=== PATIENT | female | born 2000 | race Caucasian/White ===

== ENCOUNTER 2022-10-24 14:02 | Emergency (ER) | payer OTHER, SELFPAY ==
[2022-10-24 14:19] VITALS: BP 143/118; PULSE 85; RESP 16; TEMP 36.8; O2SAT 98; BMI 26.7
--- NOTE | 2022-10-24 14:19 | ED_ITS ---
HPI - Allergic Reaction General Chief complaint: General Medical <BILL Cook Last Filed: 10/24/22 14:26> Stated complaint: Allergic reaction? Unable to swallow <BILL Cook Last Filed: 10/24/22 14:26> Time Seen by Provider: 10/24/22 14:56 <BILL Cook Last Filed: 10/24/22 14:26> Source: patient <BILL Clay Last Filed: 10/24/22 15:05> Mode of arrival: ambulatory <BILL Clay Last Filed: 10/24/22 15:05> Limitations: no limitations <BILL Clay Last Filed: 10/24/22 15:05> History of Present Illness HPI narrative: Patient is a 22 year old assigned female at with no reported medical history presenting to the emergency department today after a reaction while donating plasma. Patient states that while she was donating she began to feel hot and like her throat was closing. Patient states that this was her 5th donation. Patient denies any current dizziness, lightheadedness, abdominal pain, nausea, vomiting, fever, chills, blurry vision, double vision, loss of vision, chest pain, difficulty breathing, shortness of breath, back pain, night sweats, pain with urination, increased urinary frequency, increased urinary urgency, blood in her urine or stool, syncope or a near syncopal episode, recent trauma or falls, bowel incontinence, bladder incontinence, bowel retention, bladder retention, or any other complaints at this time. <BILL Clay Last Filed: 10/24/22 15:05> Related Data Allergies/adverse reactions: Allergies Allergy/AdvReac Type Severity Reaction Status Date / Time Cephalosporins Allergy Unknown UNKNOWN Unverified 03/04/20 18:27 [CEPHALOSPORINS] <BILL Cook Last Filed: 10/24/22 14:26> Review of Systems Constitutional: Constitutional: Reports no additional constitutional complaints, Denies chills, Denies fever(s) and Denies night sweats <BILL Clay Last Filed: 10/24/22 15:05> Eyes: Eyes: Reports no additional eye complaints, Denies blurry vision, Denies change in vision, Denies diplopia, Denies eye discharge, Denies loss of vision and Denies eye pain <BILL Clay - Last Filed: 10/24/22 15:05> ENT: Denies dizziness <BILL Clay Last Filed: 10/24/22 15:05> Cardiovascular: Cardiovascular: Reports no additional cardiovascular complaints, Denies chest pain, Denies lightheadedness, Denies Loss of Consciousness and Denies dyspnea <BILL Clay - Last Filed: 10/24/22 15:05> Respiratory: Respiratory: Reports no additional respiratory complaints and Denies dyspnea <BILL Clay - Last Filed: 10/24/22 15:05> Gastrointestinal: Gastrointestinal: Reports no additional gastrointestinal complaints, Denies abdominal pain, Denies melena, Denies hematochezia, Denies change in bowel habits and Denies change in stool character <BILL Clay Last Filed: 10/24/22 15:05> Genitourinary: Genitourinary: Denies hematuria, Denies urinary frequency, Denies dysuria, Denies urinary incontinence, Denies urinary hesitancy and Denies urinary urgency <BILL Clay Last Filed: 10/24/22 15:05> Musculoskeletal: Musculoskeletal: Reports no additional musculoskeletal complaints, Denies numbness and Denies tingling <BILL Clay Last Filed: 10/24/22 15:05> Neurologic: Denies dizziness, Denies loss of vision, Denies numbness and Denies tingling <BILL Clay Last Filed: 10/24/22 15:05> Psychiatric: Psychiatric: Reports no additional psychiatric complaints <BILL Clay Last Filed: 10/24/22 15:05> Endocrine: Endocrine: Reports no additional endocrine complaints <BILL Clay Last Filed: 10/24/22 15:05> Hematologic/Lymphatic: Hematologic/Lymphatic: Reports no additional hematologic/lymphatic complaints <BILL Clay Last Filed: 10/24/22 15:05> Allergic/Immunologic: Allergic/Immunologic: Reports no additional allergic/immunologic complaints <BILL Clay Last Filed: 10/24/22 15:05> PMFSH Past Medical History Attestation statement: The following information was validated with the patient. <BILL Clay - Last Filed: 10/24/22 15:05> Source: old records reviewed and nursing notes reviewed <BILL Clay Last Filed: 10/24/22 15:05> Social History Social History: Social History Advance Directives: No Advance Directives Information Provided: Yes <BILL Cook - Last Filed: 10/24/22 14:26> Physical Exam ED Vital Signs: Vital Signs - 24 hr 10/24/22 14:19 Temperature 98.3 F Pulse Rate 85 Respiratory Rate 16 Blood Pressure 143/118 H Pulse Oximetry 98 Oxygen Delivery Method Room Air BMI result Body Mass Index 26.7 <BILL Cook - Last Filed: 10/24/22 14:26> Vital Signs - 24 hr 10/24/22 14:19 Temperature 98.3 F Pulse Rate 85 Respiratory Rate 16 Blood Pressure 143/118 H Pulse Oximetry 98 Oxygen Delivery Method Room Air BMI result Body Mass Index 26.7 <BILL Clay - Last Filed: 10/24/22 15:05> Const General: cooperative, no acute distress, alert and awake <BILL Clay Last Filed: 10/24/22 15:05> Nutritional Appearance: well nourished <BILL Clay - Last Filed: 10/24/22 15:05> Orientation/consciousness: patient oriented x3 <BILL Clay Last Filed: 10/24/22 15:05> Limitations: no limitations <BILL Clay Last Filed: 10/24/22 15:05> HENMT Head: Yes normal to inspection and Yes atraumatic <BILL Clay - Last Filed: 10/24/22 15:05> Ears: hearing grossly normal bilaterally and external ears normal <BILL Clay Last Filed: 10/24/22 15:05> General nose exam: Normal external nose present, no nasal discharge noted and no epistaxis <BILL Clay Last Filed: 10/24/22 15:05> Face and sinus: Yes normal facial exam, No abrasion and No laceration <Trang Schwartz NV - Last Filed: 10/24/22 15:05> Mouth: Normal oral and palatal mucosa present, no drooling and no muffled voice <Trang Schwartz NV - Last Filed: 10/24/22 15:05> Eyes General: appearance normal, both eyes and all related structures <Trang Schwartz NV - Last Filed: 10/24/22 15:05> Periorbital: periorbital findings normal <Trang Schwartz NV - Last Filed: 10/24/22 15:05> Eyelids: Yes eyelids normal <Trang Schwartz NV - Last Filed: 10/24/22 15:05> Conjunctivae: conjunctivae normal <Trang Schwartz NV - Last Filed: 10/24/22 15:05> Pupils: Equal, round and reactive pupils present <Trang Schwartz NV - Last Filed: 10/24/22 15:05> EOM: EOMs intact bilaterally <Trang Schwartz NV - Last Filed: 10/24/22 15:05> Neck Neck: Yes normal visual inspection, Yes full ROM and Yes no lymphadenopathy <Trang Schwartz NV - Last Filed: 10/24/22 15:05> Chest Chest palpation & inspection: normal inspection of the chest <Trang Schwartz NV - Last Filed: 10/24/22 15:05> Resp Effort & Inspection: normal respiratory effort and able to speak in complete sentences <Trnag Schwartz NV - Last Filed: 10/24/22 15:05> GI Inspection: Yes normal to inspection <Trang Schwartz NV - Last Filed: 10/24/22 15:05> Neuro General: patient oriented x3 and moves all extremities <Trang Schwartz NV - Last Filed: 10/24/22 15:05> Cranial nerves: Yes Equal, round and reactive pupils present <Trang Schwartz NV - Last Filed: 10/24/22 15:05> Cognition (Neuro): normal cognition <Trang Schwartz NV - Last Filed: 10/24/22 15:05> Motor exam (neuro): 5/5 motor strength present throughout <Trang Schwartz NV - Last Filed: 10/24/22 15:05> Sensory Exam: Normal double simultaneous stimulation for sensation <BILL Clay - Last Filed: 10/24/22 15:05> Coordination: [id number] test normal <BILL Clay - Last Filed: 10/24/22 15:05> Extrem General: Yes normal to inspection, Yes full ROM and Yes capillary refill normal <BILL Clay - Last Filed: 10/24/22 15:05> Psych Appearance: grossly normal <BILL Clay - Last Filed: 10/24/22 15:05> Mental Status: mental status grossly normal <BILL Clay - Last Filed: 10/24/22 15:05> Affect: normal affect <BILL Clay Last Filed: 10/24/22 15:05> Attitude: cooperative <BILL Clay - Last Filed: 10/24/22 15:05> Thought process: Normal thought process present <BILL Clay Last Filed: 10/24/22 15:05> Thought content: Normal thought content present <BILL Clay Last Filed: 15:05> Insight: Good insight present (Psych) <BILL Clay - Last Filed: 10/24/22 15:05> Course Course Course Narrative: RME: 22yo F w/no sig PMHx c/o throat closing sensation/tightening since 12:00PM s/p donating plasma at [facility] in [facility] at 11:30AM. Admits was taken to [facility] ED by EMS however eloped due to wait time. Was not [facility] at [facility]. Reports she is still unable to swallow. Tested negative for COVID [employer]RI[employer]. Lung CTA, Oropharynx wnl, uvula midline, talking in complete sentences Benadryl and Pepcid ordered Full HPI, ROS and PE to be performed by primary ED provider. <BILL Cook - Last Filed: 10/24/22 14:26> Medications Administered Discontinued Medications Generic Name Dose Route Start Last Admin Trade Name Freq PRN Reason Stop Dose Admin Diphenhydramine HCl 50 mg 10/24/22 14:22 10/24/22 14:32 Diphenhydramine Hcl 25 Mg Capsule PO 05/09/23 14:23 50 mg ONCE ONE Administration Famotidine 20 mg 10/24/22 14:22 10/24/22 14:32 Famotidine 20 Mg Tablet PO 10/24/22 14:23 20 mg ONCE ONE Administration <BILL Cook - Last Filed: 10/24/22 14:26> Medications Administered Discontinued Medications Generic Name Dose Route Start Last Admin Trade Name Ghada PRN Reason Stop Dose Admin Diphenhydramine HCl 50 mg 10/24/22 14:22 10/24/22 14:32 Diphenhydramine Hcl 25 Mg Capsule PO 10/24/22 14:23 50 mg ONCE ONE Administration Famotidine 20 mg 10/24/22 14:22 10/24/22 14:32 Famotidine 20 Mg Tablet PO 10/24/22 14:23 20 mg ONCE ONE Administration <BILL Clay - Last Filed: 10/24/22 15:05> Medical Decision Making Medical Decision Making MDM Narrative: Patient is a 22 year old assigned female at with no reported medical history presenting to the emergency department today after a plasma donation reaction. Patient's physical exam was unremarkable. I explained my physical exam findings to the patient. I answered all questions asked by the patient. I stressed the importance of the patient taking her medication as prescribed. I stressed the importance of the patient following up with her primary care provider. I stressed the importance of the patient taking a break from plasma donation. I stressed the importance of the patient returning to the emergency department immediately if her symptoms were to worsen or if she were to develop any dizziness, shortness of breath, difficulty breathing, chest pain, blurry vision, loss of vision, nausea, vomiting, abdominal pain, fever, chills, back pain, or any other complaints. Patient verbalized agreement and understanding with this treatment plan and discharge. <BILL Clay - Last Filed: 10/24/22 15:05> Differential Diagnosis Differential Diagnoses: The differential diagnosis associated with the presentation includes <BILL Clay - Last Filed: 10/24/22 15:05> plasma donation reaction <BILL Clay - Last Filed: 10/24/22 15:05> Discharge Plan Discharge Clinical Impression: Vaso-vagal reaction <BILL Cook Last Filed: 10/24/22 14:26> Patient Disposition: Home, Self-Care <BILL Cook - Last Filed: 10/24/22 14:26> Instructions: Near Syncope (ED) <BILL Cook - Last Filed: 10/24/22 14:26> Additional Instructions: Follow up with your primary care provider. Return to the emergency department immediately if your symptoms worsen or if you develop any dizziness, shortness of breath, difficulty breathing, chest pain, blurry vision, loss of vision, nausea, vomiting, abdominal pain, fever, chills, back pain, or any other complaints. <BILL Cook - Last Filed: 10/24/22 14:26> Referrals: [facility] [place], [place] Family Medicine [Provider Group] (Call to establish and follow up with a primary care provider. If you already have a primary care provider, please follow up with them.) [facility] [place] [place] Primary Care, [facility] [Provider Group] (Call to establish and follow up with a primary care provider. If you already have a primary care provider, please follow up with them.) [facility] [place] [place] Primary [facility] [Provider Group] (Call to establish and follow up with a primary care provider. If you already have a primary care provider, please follow up with them.) <BILL Cook - Last Filed: 10/24/22 14:26> Stand Alone Forms: Work/School Release <BILL Cook - Last Filed: 10/24/22 14:26> Print Language: Tajik <BILL Cook - Last Filed: 10/24/22 14:26>
[2022-10-24] MEDS: diphenhydrAMINE HCL 25 MG CAPSULE 50 MG PO (14:32)
[2022-10-24] MEDS: Famotidine 20 MG TABLET PO (14:32)
[2022-10-24 15:30] VITALS: BP 121/78; PULSE 84; RESP 16; O2SAT 100
== END 2022-10-24 15:32 | disposition home or self-care (01) ==
PROVIDERS: Emergency Provider Emergency Medicine
DX: R55 Syncope and collapse (principal)
CPT/HCPCS: 99283